=== PATIENT | female | born 1965 | race Hispanic/Latino ===

== ENCOUNTER 2017-01-10 06:10 | Day surgery (SDC) | payer OTHER ==
[2017-01-10 06:56] VITALS: BMI 24.0
[2017-01-10] MEDS ORDERED: Propofol 10 mg/ml Inj (20 ML) ONE (07:35)
[2017-01-10] MEDS ORDERED: Midazolam 2 MG/2 ML VIAL ONE (07:35)
[2017-01-10] MEDS ORDERED: Lactated Ringer's 500 ML IV ONE (07:40)
[2017-01-10 08:13] VITALS: TEMP 98.2
[2017-01-10 08:48] VITALS: RESP 15; O2SAT 100
[2017-01-10 09:03] VITALS: BP 114/68; PULSE 75
== END 2017-01-10 08:55 | disposition home or self-care (01) ==
LOC: C.ENDO 06:10
PROVIDERS: ATTEND Internal Medicine Gastroenterology
DX: K31.9 Disease of stomach and duodenum, unspecified (principal); R10.13 Epigastric pain
CPT/HCPCS: 43239; 84703; 88305; J2001; J2250; J2704; J7120